=== PATIENT | female | born 1940 | race Caucasian/White ===

== ENCOUNTER → 2019-07-16 | Outpatient (CLI) | payer MEDICARE, OTHER | END | disposition home or self-care (01) | LOC: CVU 07:34 | PROVIDERS: ATTEND Internal Medicine Cardiovascular Disease | DX: I08.8 Other rheumatic multiple valve diseases (principal); I27.20 Pulmonary hypertension, unspecified | CPT/HCPCS: 93306 ==

== ENCOUNTER 2020-03-07 09:55 | Inpatient (IN) | payer MEDICARE, OTHER ==
[~2020-03-07] VITALS: Ht 170.2 cm; Wt 104.2 kg
[2020-03-07 10:47] VITALS: BP 127/77
[2020-03-07] MEDS ORDERED: PLEASE ENTER ALLERGIES MC SCH (11:00)
[2020-03-07] MEDS ORDERED: PLEASE ENTER HEIGHT AND WEIGHT MC SCH (11:00)
[2020-03-07 11:17] LABS: INTERNATIONAL NORMALIZED RATIO 1.42 (0.93-1.1); PROTHROMBIN TIME 14.7 Seconds (9.6-11.5)
[2020-03-07 11:20] LABS: ALANINE AMINOTRANSFERASE 17 U/L (12-78); ANION GAP 4 mmol/L (5-15); CHLORIDE 105 mmol/L (98-107); CREATININE 1.06 mg/dL (0.55-1.02)
[2020-03-07 11:23] LABS: ALKALINE PHOSPHATASE 98 U/L (45-117); BASOPHILS # (AUTO) 0.03 x10^3/uL (0-0.1); BASOPHILS % (AUTO) 0 % (0-1); BILIRUBIN,TOTAL 0.8 mg/dL (0.2-1.0); EOSINOPHILS # (AUTO) 0.31 x10^3/uL (0-0.4); EOSINOPHILS % (AUTO) 4 % (1-7); LYMPHOCYTES # (AUTO) 1.41 x10^3/uL (1-3.4); LYMPHOCYTES % (AUTO) 19 % (22-44); MD NO; MEAN CORPUSCULAR HEMOGLOBIN 29.3 pg (27.0-34.8); MEAN CORPUSCULAR HGB CONC 32.1 g/dL (32.4-35.8); MEAN CORPUSCULAR VOLUME 91.4 fL (80-100); MEAN PLATELET VOLUME 7.9 fL (7.4-10.4); MONOCYTES # (AUTO) 0.65 x10^3/uL (0.2-0.8); MONOCYTES % (AUTO) 9 % (2-9); NEUTROPHILS % (AUTO) 68 % (42-75); PLATELET COUNT 322 x10^3/uL (130-400); RED BLOOD COUNT 3.54 x10^6/uL (3.82-5.3); RED CELL DISTRIBUTION WIDTH 15.8 % (9.6-15.2); TOTAL PROTEIN 7.7 g/dL (6.4-8.2)
[2020-03-07] MEDS ORDERED: WARF-36 PO (11:48)
[2020-03-07] MEDS ORDERED: SPIR25TA5 PO (11:48)
[2020-03-07] MEDS ORDERED: OMEG-123 PO (11:48)
[2020-03-07] MEDS ORDERED: BIOT25005 PO (11:48)
[2020-03-07] MEDS ORDERED: PARO10TA3 PO (11:48)
[2020-03-07] MEDS ORDERED: DILT120C48 PO (11:48)
[2020-03-07] MEDS ORDERED: [UNRECOGNIZED DRUG - OTHER] PO (11:48)
[2020-03-07] MEDS ORDERED: ATOR10TA9 PO (11:48)
[2020-03-07] MEDS ORDERED: FURO40TA6 PO (11:48)
[2020-03-07] MEDS ORDERED: WARF10TA43 PO (11:48)
[2020-03-07] MEDS ORDERED: UBID100C24 PO (11:48)
[2020-03-07] MEDS ORDERED: ASCO10004 PO (11:48)
[2020-03-07] MEDS ORDERED: HEPARIN 5,000 UNITS/ML, 1ML IV ONE (12:00)
[2020-03-07] MEDS: HEPARIN 25,000 UNITS/250ML PMX 250 ML IV PRN (12:26)
[2020-03-07] MEDS: ASPIRIN 81 MG TABLET EC PO SCH (12:55)
[2020-03-07] MEDS ORDERED: ATORVASTATIN 10 MG TABLET PO SCH (12:56)
[2020-03-07] MEDS: DILTIAZEM 120 MG CAP.ER.24H PO SCH (12:57)
[2020-03-07 13:00] VITALS: BP 103/56
[2020-03-07] MEDS ORDERED: ONDANSETRON 2MG/ML, 2ML IV PRN (13:00)
[2020-03-07] MEDS ORDERED: BISACODYL 10 MG SUPP PR PRN (13:00)
[2020-03-07] MEDS ORDERED: BISACODYL 5 MG EC TABLET PO PRN (13:00)
[2020-03-07] MEDS ORDERED: ZOLPIDEM 5MG TABLET PO PRN (13:00)
[2020-03-07] MEDS ORDERED: morphine SULFATE 10 MG/ML, 1ML IV PRN (13:00)
[2020-03-07] MEDS ORDERED: ACETAMINOPHEN 325 MG TABLET PO PRN (13:00)
[2020-03-07] MEDS: FUROSEMIDE 40 MG TABLET PO SCH (13:23)
[2020-03-07] MEDS ORDERED: ASPI81TA45 PO (13:25)
[2020-03-07] MEDS ORDERED: MIRT7.5T8 PO (16:26)
[2020-03-07] MEDS ORDERED: MIRT15TA94 PO (16:30)
[2020-03-07] MEDS ORDERED: NITROGLYCERIN SINGLE TAB 0.4 MG SL PRN (16:30)
[2020-03-07] MEDS ORDERED: NITROGLYCERIN 0.4 MG/SPRAY SL PRN (17:00)
[2020-03-07 19:03] VITALS: BP_SYST 95; BP_SYST 99; BP_DIAS 55
[2020-03-07] MEDS: HEPARIN 5,000 UNITS/ML, 1ML IV PRN (19:45)
[2020-03-07] MEDS: FUROSEMIDE 20 MG TABLET PO SCH (19:59)
[2020-03-07] MEDS: ATORVASTATIN 10 MG TABLET PO SCH (20:00)
[2020-03-07] MEDS: SODIUM CHLORIDE FLUSH 10ML SYR IVF SCH (21:00)
[2020-03-07] MEDS: MIRTAZAPINE 15 MG TABLET PO SCH (21:55)
[2020-03-08 01:07] VITALS: BP 108/68
[2020-03-08 02:45] LABS: INTERNATIONAL NORMALIZED RATIO 1.26 (0.93-1.1)
[2020-03-08] MEDS: HEPARIN 5,000 UNITS/ML, 1ML IV PRN ×2 (03:14→15:46)
[2020-03-08] MEDS: ASPIRIN 81 MG TABLET EC PO SCH (06:15)
[2020-03-08 07:11] VITALS: BP 103/59
[2020-03-08] MEDS: HEPARIN 25,000 UNITS/250ML PMX 250 ML IV PRN (08:43)
[2020-03-08] MEDS: FUROSEMIDE 40 MG TABLET PO SCH (08:43)
[2020-03-08] MEDS: SODIUM CHLORIDE FLUSH 10ML SYR IVF SCH ×2 (08:44→21:40)
[2020-03-08] MEDS: DILTIAZEM 120 MG CAP.ER.24H PO SCH (08:44)
[2020-03-08 12:55] VITALS: BP 115/59
[2020-03-08] MEDS ORDERED: FUROSEMIDE 40 MG TABLET PO SCH (12:56)
[2020-03-08 19:14] VITALS: BP 117/75
[2020-03-08] MEDS: MIRTAZAPINE 15 MG TABLET PO SCH (21:40)
[2020-03-08] MEDS: ATORVASTATIN 10 MG TABLET PO SCH (21:40)
[2020-03-08] MEDS: FUROSEMIDE 20 MG TABLET PO SCH (21:40)
[2020-03-09 02:00] VITALS: BP 116/66
[2020-03-09] MEDS: HEPARIN 25,000 UNITS/250ML PMX 250 ML IV PRN (02:43)
[2020-03-09 04:53] LABS: INTERNATIONAL NORMALIZED RATIO 1.15 (0.93-1.1); PROTHROMBIN TIME 11.9 Seconds (9.6-11.5)
[2020-03-09] MEDS: ASPIRIN 81 MG TABLET EC PO SCH (06:14)
[2020-03-09 07:15] VITALS: BP 113/77
[2020-03-09] MEDS: FUROSEMIDE 40 MG TABLET PO SCH ×2 (07:39→18:23)
[2020-03-09] MEDS: DILTIAZEM 120 MG CAP.ER.24H PO SCH (07:39)
[2020-03-09] MEDS: SODIUM CHLORIDE FLUSH 10ML SYR IVF SCH ×2 (08:03→21:08)
[2020-03-09] MEDS: SODIUM CHLORIDE 0.9% 1,000 ML IV SCH ×2 (12:48→21:29)
[2020-03-09 13:54] VITALS: BP 128/64
[2020-03-09] MEDS ORDERED: HEPARIN 1,000 UNITS/ML, 10ML ONE (14:29)
[2020-03-09] MEDS ORDERED: DIPHENHYDRAMINE 50 MG/ML, 1ML ONE (14:29)
[2020-03-09] MEDS ORDERED: LIDOCAINE 1%, 20ML ONE (14:29)
[2020-03-09] MEDS ORDERED: FENTANYL PF 100 MCG/2ML ONE (14:29)
[2020-03-09] MEDS ORDERED: VERAPAMIL 2.5 MG/ML, 2ML ONE (14:29)
[2020-03-09] MEDS ORDERED: MIDAZOLAM 1 MG/ML, 2ML ONE (14:29)
[2020-03-09] MEDS ORDERED: SODIUM CHLORIDE 0.9% 1,000 ML IV SCH (16:45)
[2020-03-09 19:34] VITALS: BP 110/72
[2020-03-09] MEDS ORDERED: ISOSORBIDE DINITRATE 10 MG TABLET PO SCH (21:00)
[2020-03-09] MEDS: ATORVASTATIN 10 MG TABLET PO SCH (21:06)
[2020-03-09] MEDS: MIRTAZAPINE 15 MG TABLET PO SCH (21:06)
[2020-03-10 03:04] VITALS: BP 96/51
[2020-03-10 03:12] LABS: INTERNATIONAL NORMALIZED RATIO 1.07 (0.93-1.1)
[2020-03-10] MEDS: HEPARIN 5,000 UNITS/ML, 1ML IV PRN (03:50)
[2020-03-10] MEDS: ASPIRIN 81 MG TABLET EC PO SCH (05:45)
[2020-03-10] MEDS: HEPARIN 25,000 UNITS/250ML PMX 250 ML IV PRN (07:09)
[2020-03-10] MEDS: SODIUM CHLORIDE 0.9% 1,000 ML IV SCH ×2 (07:41→17:04)
[2020-03-10 08:00] VITALS: BP 154/75
[2020-03-10] MEDS ORDERED: FUROSEMIDE 40 MG/4 ML IV ONE (08:30)
[2020-03-10] MEDS: FUROSEMIDE 40 MG TABLET PO SCH ×2 (08:32→17:04)
[2020-03-10] MEDS: DILTIAZEM 120 MG CAP.ER.24H PO SCH (08:32)
[2020-03-10] MEDS: SODIUM CHLORIDE FLUSH 10ML SYR IVF SCH ×2 (08:33→20:49)
[2020-03-10] MEDS ORDERED: WARFARIN MECH. VALVE PROTOCOL 2.5 to 3.5 XX PRN (09:30)
[2020-03-10] MEDS ORDERED: WARFARIN 10 MG TABLET PO-COUM ONE (10:00)
[2020-03-10] MEDS: SPIRONOLACTONE 25 MG TABLET PO SCH (11:09)
[2020-03-10 13:38] VITALS: BP 114/70
[2020-03-10] MEDS ORDERED: WARFARIN 5 MG TABLET PO-COUM ONE (18:00)
[2020-03-10 19:44] VITALS: BP 105/62
[2020-03-10] MEDS: ATORVASTATIN 10 MG TABLET PO SCH (20:47)
[2020-03-10] MEDS: MIRTAZAPINE 15 MG TABLET PO SCH (20:47)
[2020-03-11] MEDS: HEPARIN 25,000 UNITS/250ML PMX 250 ML IV PRN ×2 (01:26→17:32)
[2020-03-11] MEDS: SODIUM CHLORIDE 0.9% 1,000 ML IV SCH ×3 (03:21→23:12)
[2020-03-11 03:29] VITALS: BP 103/65
[2020-03-11] MEDS: ASPIRIN 81 MG TABLET EC PO SCH (05:16)
[2020-03-11 06:03] LABS: CHLORIDE 103 mmol/L (98-107)
[2020-03-11 06:20] LABS: ANION GAP 5 mmol/L (5-15); CALCIUM 9.9 mg/dL (8.5-10.1); CREATININE 1.24 mg/dL (0.55-1.02)
[2020-03-11 06:38] LABS: INTERNATIONAL NORMALIZED RATIO 1.12 (0.93-1.1); PROTHROMBIN TIME 11.5 Seconds (9.6-11.5)
[2020-03-11 07:35] VITALS: BP 111/70
[2020-03-11] MEDS: FUROSEMIDE 40 MG TABLET PO SCH ×2 (07:51→17:09)
[2020-03-11] MEDS: SPIRONOLACTONE 25 MG TABLET PO SCH (07:51)
[2020-03-11] MEDS: DILTIAZEM 120 MG CAP.ER.24H PO SCH (07:51)
[2020-03-11] MEDS: SODIUM CHLORIDE FLUSH 10ML SYR IVF SCH ×2 (07:52→20:44)
[2020-03-11 13:39] VITALS: BP 101/62
[2020-03-11] MEDS ORDERED: WARFARIN 5 MG TABLET PO-COUM ONE (18:00)
[2020-03-11 19:58] VITALS: BP 98/63
[2020-03-11] MEDS: ATORVASTATIN 10 MG TABLET PO SCH (20:42)
[2020-03-11] MEDS: MIRTAZAPINE 15 MG TABLET PO SCH (20:42)
[2020-03-12 05:25] VITALS: BP 101/63
[2020-03-12] MEDS: ASPIRIN 81 MG TABLET EC PO SCH (05:27)
[2020-03-12 06:12] LABS: ANION GAP 4 mmol/L (5-15); CALCIUM 10.3 mg/dL (8.5-10.1); CHLORIDE 103 mmol/L (98-107); CREATININE 1.24 mg/dL (0.55-1.02)
[2020-03-12 06:14] LABS: INTERNATIONAL NORMALIZED RATIO 1.17 (0.93-1.1); PROTHROMBIN TIME 12.1 Seconds (9.6-11.5)
[2020-03-12] MEDS ORDERED: WARFARIN 5 MG TABLET PO-COUM SCH (07:30)
[2020-03-12 08:28] VITALS: BP 144/69
[2020-03-12] MEDS: SODIUM CHLORIDE 0.9% 1,000 ML IV SCH ×2 (08:30→15:20)
[2020-03-12] MEDS: SPIRONOLACTONE 25 MG TABLET PO SCH (09:09)
[2020-03-12] MEDS: DILTIAZEM 120 MG CAP.ER.24H PO SCH (09:09)
[2020-03-12] MEDS: SODIUM CHLORIDE FLUSH 10ML SYR IVF SCH ×2 (09:09→20:12)
[2020-03-12] MEDS: FUROSEMIDE 40 MG TABLET PO SCH ×2 (09:09→16:49)
[2020-03-12] MEDS: HEPARIN 25,000 UNITS/250ML PMX 250 ML IV PRN (11:04)
[2020-03-12 12:16] VITALS: BP 113/70
[2020-03-12] MEDS ORDERED: WARFARIN 5 MG TABLET PO-COUM ONE (18:00)
[2020-03-12 20:00] VITALS: BP 126/73
[2020-03-12] MEDS: ATORVASTATIN 10 MG TABLET PO SCH (20:11)
[2020-03-12] MEDS: MIRTAZAPINE 15 MG TABLET PO SCH (20:11)
[2020-03-13] MEDS: HEPARIN 25,000 UNITS/250ML PMX 250 ML IV PRN ×2 (03:20→19:43)
[2020-03-13 03:21] VITALS: BP 113/58
[2020-03-13 06:10] LABS: INTERNATIONAL NORMALIZED RATIO 1.31 (0.93-1.1); PROTHROMBIN TIME 13.5 Seconds (9.6-11.5)
[2020-03-13] MEDS: FUROSEMIDE 40 MG TABLET PO SCH ×2 (07:46→17:19)
[2020-03-13] MEDS: SPIRONOLACTONE 25 MG TABLET PO SCH (07:46)
[2020-03-13] MEDS: DILTIAZEM 120 MG CAP.ER.24H PO SCH (07:46)
[2020-03-13] MEDS: ASPIRIN 81 MG TABLET EC PO SCH (07:49)
[2020-03-13] MEDS: SODIUM CHLORIDE FLUSH 10ML SYR IVF SCH ×2 (07:51→19:43)
[2020-03-13] MEDS ORDERED: WARFARIN 5 MG TABLET PO-COUM ONE (08:30)
[2020-03-13 13:44] VITALS: BP 104/67
[2020-03-13] MEDS ORDERED: WARFARIN 7.5 MG TABLET PO-COUM SCH (18:00)
[2020-03-13 19:38] VITALS: BP 102/67
[2020-03-13] MEDS: ATORVASTATIN 10 MG TABLET PO SCH (19:41)
[2020-03-13] MEDS: MIRTAZAPINE 15 MG TABLET PO SCH (19:41)
[2020-03-14 05:31] VITALS: BP 95/64
[2020-03-14 06:00] LABS: ANION GAP 7 mmol/L (5-15); CALCIUM 10.7 mg/dL (8.5-10.1); CHLORIDE 103 mmol/L (98-107)
[2020-03-14 06:05] LABS: CREATININE 1.34 mg/dL (0.55-1.02)
[2020-03-14 06:11] LABS: INTERNATIONAL NORMALIZED RATIO 1.54 (0.93-1.1); PROTHROMBIN TIME 15.9 Seconds (9.6-11.5)
[2020-03-14 07:13] VITALS: BP 116/76
[2020-03-14] MEDS: ASPIRIN 81 MG TABLET EC PO SCH (07:28)
[2020-03-14] MEDS: DILTIAZEM 120 MG CAP.ER.24H PO SCH (07:28)
[2020-03-14] MEDS: SPIRONOLACTONE 25 MG TABLET PO SCH (07:28)
[2020-03-14] MEDS: SODIUM CHLORIDE FLUSH 10ML SYR IVF SCH ×2 (07:30→20:06)
[2020-03-14] MEDS: FUROSEMIDE 40 MG TABLET PO SCH ×2 (07:30→16:06)
[2020-03-14] MEDS ORDERED: WARFARIN 5 MG TABLET PO-COUM ONE (07:30)
[2020-03-14 12:33] VITALS: BP 95/63
[2020-03-14] MEDS: HEPARIN 25,000 UNITS/250ML PMX 250 ML IV PRN (12:37)
[2020-03-14] MEDS ORDERED: WARFARIN 7.5 MG TABLET PO-COUM SCH (18:00)
[2020-03-14 18:38] VITALS: BP 101/66
[2020-03-14] MEDS: ATORVASTATIN 10 MG TABLET PO SCH (20:06)
[2020-03-14] MEDS: MIRTAZAPINE 15 MG TABLET PO SCH (20:06)
[2020-03-15 04:13] VITALS: BP 107/70
[2020-03-15 06:20] LABS: PROTHROMBIN TIME 20.7 Seconds (9.6-11.5)
[2020-03-15 06:58] VITALS: BP 116/77
[2020-03-15] MEDS ORDERED: WARFARIN 5 MG TABLET PO-COUM ONE (08:00)
[2020-03-15] MEDS: HEPARIN 25,000 UNITS/250ML PMX 250 ML IV PRN (08:40)
[2020-03-15] MEDS: SPIRONOLACTONE 25 MG TABLET PO SCH (08:41)
[2020-03-15] MEDS: ASPIRIN 81 MG TABLET EC PO SCH (08:41)
[2020-03-15] MEDS: FUROSEMIDE 40 MG TABLET PO SCH (08:42)
[2020-03-15] MEDS: DILTIAZEM 120 MG CAP.ER.24H PO SCH (08:43)
[2020-03-15] MEDS: SODIUM CHLORIDE FLUSH 10ML SYR IVF SCH (08:43)
== END 2020-03-15 11:22 | disposition home or self-care (01) | DRG 287 ==
LOC: 5SO 09:55 → DCLOUNGE 03-15 11:13
PROVIDERS: ADMIT Internal Medicine Cardiovascular Disease; ATTEND Internal Medicine Cardiovascular Disease
PROC: 4A023N8 Measurement of Cardiac Sampling and Pressure, Bilateral, Percutaneous Approach (ICD-10-PCS; principal; 2020-03-09)
PROC: B211YZZ Fluoroscopy of Multiple Coronary Arteries using Other Contrast (ICD-10-PCS; 2020-03-09)
PROC: B215YZZ Fluoroscopy of Left Heart using Other Contrast (ICD-10-PCS; 2020-03-09)
DX: I27.29 Other secondary pulmonary hypertension (principal); I48.20 Chronic atrial fibrillation, unspecified; D68.69 Other thrombophilia; I27.81 Cor pulmonale (chronic); E78.5 Hyperlipidemia, unspecified; G47.30 Sleep apnea, unspecified; I27.20 Pulmonary hypertension, unspecified; I07.1 Rheumatic tricuspid insufficiency; D64.9 Anemia, unspecified; E66.9 Obesity, unspecified; I11.0 Hypertensive heart disease with heart failure; I50.9 Heart failure, unspecified; J98.4 Other disorders of lung; R09.02 Hypoxemia; Z87.891 Personal history of nicotine dependence; Z95.3 Presence of xenogenic heart valve; Z68.36 Body mass index [BMI] 36.0-36.9, adult; Z79.01 Long term (current) use of anticoagulants
CPT/HCPCS: 36415; 80048; 80053; 83880; 85025; 85520; 85610; 93005; 93456; 99156; 99157; C1760; C1769; C1894; G0378; J1644; J1940; J2250; J3010; J1200; J7030; Q9967